=== PATIENT | male | born 1945 | race Caucasian/White ===

== ENCOUNTER 2023-10-25 13:14 | Outpatient (RCR) | payer MEDICARE, SELFPAY ==
[2023-10-25 14:25] LABS: Creatinine* 0.9 mg/dL (0.5-1.5); Est. Creatinine Clearance* 61.85; Estimated Glomerular Filt Rate 87 ml/min
== END 2024-04-22 23:59 | disposition home or self-care (01) ==
LOC: CCIC 13:14
PROVIDERS: Visit Provider Clinical Nurse Specialist
DX: C07 Malignant neoplasm of parotid gland (principal); C77.0 Secondary and unspecified malignant neoplasm of lymph nodes of head, face and neck
CPT/HCPCS: 36415; 82565; 99211